=== PATIENT | female | born 1990 | race Caucasian/White ===

== ENCOUNTER 2022-09-16 16:17 | Emergency (ER) | payer MEDICAID ==
[~2022-09-16] VITALS: Ht 170.2 cm; Wt 56.7 kg
[2022-09-16 16:24] VITALS: PULSE 78; RESP 18
[2022-09-16 16:49] VITALS: BP 116/48; TEMP 98.5; O2SAT 100
== END 2022-09-16 19:13 | disposition home or self-care (01) ==
LOC: ER 16:17
DX: E11.621 Type 2 diabetes mellitus with foot ulcer (principal)
CPT/HCPCS: 99281